=== PATIENT | male | born 1970 | race Caucasian/White ===

== ENCOUNTER 2020-01-29 01:06 | Emergency (ER) | payer SELFPAY ==
[~2020-01-29] VITALS: Ht 175.3 cm; Wt 77.3 kg
[~2020-01-29 01:06] MED LIST: AMOXICILLIN 8751 TAB PO; BACTRIM DS 8001 TAB PO; MOTRIN 800800 MG/TAB PO; NO HOME MEDICATIONS; NORCO 325 MG-51 TAB PO
[2020-01-29 01:10] VITALS: BP 144/92; TEMP 99
[2020-01-29] MEDS ORDERED: AMOXICILLIN 50500 MG PO (03:39)
[2020-01-29 03:59] VITALS: PULSE 116
== END 2020-01-29 04:08 | disposition home or self-care (01) ==
LOC: COL.ER 01:06
DX: S01.511A Laceration without foreign body of lip, initial encounter (principal); S10.93XA Contusion of unspecified part of neck, initial encounter; F17.210 Nicotine dependence, cigarettes, uncomplicated; Y04.2XXA Assault by strike against or bumped into by another person, initial encounter; Y92.009 Unspecified place in unspecified non-institutional (private) residence as the place of occurrence of the external cause